=== PATIENT | female | born 1950 | race Hispanic/Latino ===

== ENCOUNTER 2016-06-26 14:20 | Emergency (ER) | payer OTHER ==
[~2016-06-26] VITALS: Ht 162.6 cm; Wt 65.9 kg
[2016-06-26 14:25] VITALS: BP 146/69; PULSE 75; RESP 18; O2SAT 96
--- NOTE | 2016-06-26 15:35 | DRSVH ---
PROCEDURE: X-RAY CHEST, TWO VIEWS ([id number]) INDICATIONS: shortness of breath TECHNIQUE: 2 views of the chest were acquired. COMPARISON: [facility], , CHEST 2VW, 03/08/2011, 12:05. FINDINGS: Surgical changes and devices: None. Lungs and pleura: No pleural effusions or pneumothorax. Lungs are clear. Mediastinum: Mediastinal contours are normal. Heart size is normal. Bones and chest wall: No suspicious bony abnormalities. Soft tissues appear unremarkable. IMPRESSION: No acute disease Dictated by: Miguel Herrera M.D. on 06/26/2016 at 15:33 Approved by: Miguel Herrera M.D. on 06/26/2016 at 15:33
[2016-06-26 16:27] LABS: BASOPHILS % (AUTO) 0.4 % (0-3); EOSINOPHILS % (AUTO) 1.9 % (0-5); MONOCYTES % (AUTO) 6.1 % (4-12); Mean Corpuscular Volume 83.3 fL (81-100); NEUTROPHILS % (AUTO) 61.3 % (40-74); Platelet Count 210 bil/L (150-400)
[2016-06-26 16:54] LABS: APPEARANCE,URINE CLEAR (CLEAR,HAZY); COLOR,URINE STRAW (YELLOW); OCCULT BLOOD,URINE NEGATIVE (NEGATIVE); PH,URINE 6.5 (5.0-8.0); UROBILINOGEN,URINE NORMAL (NORMAL)
[2016-06-26 17:04] VITALS: BP 155/78; PULSE 68; O2SAT 94
[2016-06-26 17:08] LABS: Magnesium 1.8 mg/dL (1.6-2.6)
[2016-06-26 17:10] LABS: TROPONIN T < 0.010 ug/L (0.0-0.011)
[2016-06-26] MEDS ORDERED: BENZ-12 PO (18:08)
--- NOTE | 2016-06-26 18:19 | ED.REPORT ---
HPI-General Illness Date of Service Jun 26, 2016 ED Provider: Dima Miranda MD 65 year old female with a history of diabetes who presents to the ED due to flu like sx for 3 weeks. She reports sinus congestion and cough. She was seen by her PCP twice and has finished a course of amoxicillin. Her symptoms improved, but she still complains of a lingering cough. weakness, and fatigue. Pt denies sore throat, SOB, CP and ear pain. Nursing Notes Stated Complaint: SICK/WEAK Chief Complaint: FLU/Cold Symptoms Nursing Notes Reviewed: Yes Allergies: Coded Allergies: No Known Allergies (Verified Allergy, Unknown, 06/26/16) Scheduled PRN Benzonatate (Tessalon Perle) 100 Mg Capsule 100 MG PO TID PRN PRN For Cough General Time Seen by MD: 16:41 Chief Complaint Cough Hx Obtained From: Patient Arrived By: Walk-in Sudden in Onset?: No Symptom Duration: Since onset Severity: Current: No pain currently Associated with: Denies: Chest pain, Shortness of breath Recent Healthcare: Recent doctor visit Past Medical History Past Medical History Reports: Diabetes mellitus Past Surgical History None reported Smoking History Unknown if Ever Smoker Review of Systems Full Review of Systems Constitutional: Reports: Fatigue, Weakness - generalized, Denies: Chills, Fever Ears / Nose / Throat: Reports: Nasal congestion, Denies: Earache bilateral, Sore throat Respiratory: Reports: Non-productive cough, Denies: Shortness of breath Cardiovascular: Denies: Chest pain, Edema GI: Denies: Abdominal pain, Vomiting Complete sys rev & neg: except as marked. Physical Exam Vital Signs Vital Signs Date Time Temp Pulse Resp B/P Pulse Ox O2 Delivery O2 Flow Rate FiO2 06/26/16 18:56 37.2 66 133/63 97 Room Air 06/26/16 17:04 36.6 68 155/78 94 Room Air 06/26/16 14:25 36.5 75 18 146/69 96 Room Air Initial VS: Reviewed General/Constitutional: Well-developed Head / Eyes: Atraumatic, Normocephalic, PERRL ENT: Mucous membranes moist, Conjunctiva normal, No scleral icterus Neck: Supple, Non-tender, Full range of motion Abdomen / GI: Soft, Non-tender, No guarding, No rebound, No distention Extremities: Vascular intact, Neuro intact, No swelling (at calf), No tenderness (at calf) Skin: Warm, Dry, No cyanosis Neurologic: Alert, Oriented, Nonfocal Psychiatric: Mood/affect normal, Behavior normal, Normal thought content General/Constitutional: Awake, Alert, Well appearing, Not toxic appearing Respiratory / Chest: Breath sounds NL, Breath sounds = bilat, No respiratory distress, No rales, No rhonchi, No wheezing Cardiovascular: Heart rate NL, Regular rhythm, Heart sounds NL, No gallop, No murmurs, No rubs, Cap refill not delayed, Peripheral circulation NL Interpretation & Diagnostics Lab Results Interpretation Result Diagram: 06/26/16 1616 06/26/16 1616 Test 06/26/16 16:16 06/26/16 16:36 White Blood Count 7.6th/mm3 (3.8-10.1) Red Blood Count 4.73mil/mm3 (3.90-5.20) Hemoglobin 13.7g/dL (12.0-15.6) Hematocrit 39.4% (35.0-46.0) Mean Corpuscular Volume 83.3fL (81-100) Mean Corpuscular Hemoglobin 29.0pg (27.0-35.0) Mean Corpuscular Hemoglobin Concent 34.8% (32.0-37.0) Red Cell Distribution Width 13.6% (12.3-15.4) Platelet Count 210bil/L (150-400) Neutrophils (%) (Auto) 61.3% (40-74) Lymphocytes (%) (Auto) 30.2% (14-46) Monocytes (%) (Auto) 6.1% (4-12) Eosinophils (%) (Auto) 1.9% (0-5) Basophils (%) (Auto) 0.4% (0-3) Sodium Level 142mEq/L (134-144) Potassium Level 4.5mEq/L (3.5-5.2) Chloride Level 103mEq/L (97-108) Carbon Dioxide Level 26mmol/L (18-29) Blood Urea Nitrogen 11mg/dL (8-27) Creatinine 0.43mg/dL (0.57-1.00) Estimat Glomerular Filtration Rate 212mL/min (>59) Glucose Level 92mg/dL (60-99) Calcium Level 9.6mg/dL (8.5-10.1) Magnesium Level 1.8mg/dL (1.6-2.6) Total Bilirubin 0.6mg/dL (0.0-1.2) Aspartate Amino Transf (AST/SGOT) 15U/L (0-50) Alanine Aminotransferase (ALT/SGPT) 12U/L (0-32) Alkaline Phosphatase 63U/L (25-165) Troponin T < 0.010ug/L (0.0-0.011) Total Protein 7.4g/dL (6.4-8.4) Albumin 4.2g/dL (3.4-5.0) Hold Fonseca Top Tube Received (Received) Urine Color Straw (YELLOW) Urine Appearance Clear (CLEAR,HAZY) Urine pH 6.5 (5.0-8.0) Urine Specific [place] 1.005 (1.003-1.035) Urine Protein Negativemg/dL (NEG,TRACE) Urine Glucose (UA) Negativemg/dL (NEGATIVE) Urine Ketones Negativemg/dL (NEGATIVE) Urine Occult Blood Negative (NEGATIVE) Urine Nitrite Negative (NEGATIVE) Urine Bilirubin Negative (NEGATIVE) Urine Urobilinogen Normalmg/dL (NORMAL) Urine Leukocyte Esterase Negative (NEGATIVE) Urine RBC 0-2/hpf (0-2) Urine WBC 0-5/hpf (0-5) Urine Epithelial Cells None/hpf (NONE-MOD) Urine Crystals None seen (NONE SEEN) Urine Bacteria None/hpf (NONE-FEW) Urine Hyaline Casts None/lpf (NONE) Urine Granular Casts None seen (NONE SEEN) Urine Waxy Casts None seen (NONE SEEN) Urine Red Blood Cell Casts None seen (NONE SEEN) Urine White Blood Cell Casts None seen (NONE SEEN) Urine Mucus None seen (None Seen) Urine Trichomonas None seen (NONE SEEN) Urine Yeast None (NONE SEEN) Urinalysis Comment None Urine Culture Reflexed Not indicated General Lab Results Interp 1: Labs reviewed ECG Interpretation Time: 16:55 Interpreted by: ED physician Normal ECG Interpretation: Normal rate (69), Normal sinus rhythm, No acute ischemic changes, Normal QRS, Normal axis, Normal intervals X-Ray Chest Interpretation Chest Xray Interpretation: IMPRESSION: No acute disease Dictated by: Miguel Herrera M.D. on 06/26/2016 at 15:33 View: AP & lat Interpretation / Wet Read by: Interpret - Radiologist Re-Eval/Medical Decision Med Decision/Clinical Course 65 year old female with a history of diabetes who presents to the ED due to flu like sx for 3 weeks. She reports sinus congestion and cough. She was seen by her PCP twice and has finished a course of amoxicillin. Her symptoms improved, but she still complains of a lingering cough. weakness, and fatigue. Pt denies sore throat, SOB, CP and ear pain. Here in the emergency department the patient is afebrile stable vital signs and in no apparent distress. Her studies were notable as below: Flu neg CBC nl CMP nl Troponin nl CXR: Obtained, reviewed and interpreted by myself shows no evidence of acute infiltrates, effusions or pneumothorax. Cardiac and mediastinal silhouette normal. No bony or soft tissue abnormalities. EKG was interpreted by myself as documented above. Patient remained afebrile and in no apparent distress. No evidence of pneumonia on chest x-ray. CBC and CMP unremarkable. Troponin is normal and no evidence of ischemia on EKG. Presentation not suggestive of acute coronary syndrome or pulmonary embolism. She is in no respiratory distress. Overall presentation most consistent with mild bronchitis in setting of recent viral illness. Patient was prescribed Tessalon for cough. Follow precautions were reviewed in detail she was discharged in stable condition. Time of Eval: 18:08 Re-Evaluation/Progress Note: Updated pt of labs, ECG and imaging results. Discussed plan for discharge and follow up. All questions addressed. Counseled Regarding: Diagnosis, Lab results, Need for follow-up, When/why to return to ED Discharge & Departure Primary Impression: Cough Additional Impressions: Fatigue Fatigue type: unspecified Qualified Code: R53.83 - Other fatigue History of type 2 diabetes mellitus Disposition: Home Discharge Condition All VS Reviewed: Yes Condition: Improved Additional Instructions: Thank you for seeking care at [facility] emergency room. You were seen in the ED today for cough and fatigue. Our primary goal today in the ED was to evaluate you for any life-threatening conditions. Your evaluation was reassuring. You will be discharged with a prescription for Tesssalon Perles. You should follow-up with your primary doctor in the next week. Return sooner if you do not improve in 2-3 days. You should return to the ED immediately if you develop fevers, vomiting, cough , shortness of breath, chest pain, lightheadedness, weakness or any other concerning signs or symptoms. Thank you for letting us partake in your care today. Scribe Attestation Portions of this note were transcribed by Alisson Smith. I, (Dr. Miranda) personally performed the history, physical exam and medical decision-making; I reviewed and confirmed the accuracy of the information in the transcribed note. Signed by: Alisson Smith. 06/26/2016, 1953 Dima Miranda MD Jun 26, 2016 18:19 Alisson Smith Jun 26, 2016 19:49
[2016-06-26 18:56] VITALS: BP 133/63; PULSE 66; O2SAT 97
== END 2016-06-26 18:57 | disposition home or self-care (01) ==
LOC: SED 14:20
DX: R05 Cough (principal); R53.83 Other fatigue; E11.9 Type 2 diabetes mellitus without complications